=== PATIENT | male | born 1930 | race Caucasian/White ===

== ENCOUNTER 2016-11-07 10:49 | Emergency (ER) | payer MEDICARE, BC ==
[~2016-11-07] VITALS: Ht 177.8 cm; Wt 73.6 kg
[~2016-11-07 10:49] MED LIST: AMBIEN 10MG10 MG PO; ASPIRIN E.C. 8181 MG PO; ATIVAN 0.50.5 MG/TAB PO; AVAPRO TAB150 MG/TAB PO; B-12500 MCG PO; CRESTOR20 MG PO; LUTEIN20 MG PO; NAMENDA 10MG TA10 MG PO; NITRO-DUR0.4 MG/PAT TD; NITROQUICK0.4 MG SL; OMEGA-3 FISH1200 MG PO; PACERONE200 MG PO; PREDNISONE20 MG PO; ROXICODONE 55 MG/TAB PO; TEGRETOL100 MG PO; THEO-24100 MG PO; TIROSINT50 MCG PO; TOPROL XL 25MG25 MG PO; TYLENOL 325MG325 MG PO
[2016-11-07 10:51] VITALS: TEMP 97.7
[2016-11-07] MEDS ORDERED: LASIX 40MG TABL40 MG PO (11:12)
[2016-11-07] MEDS ORDERED: ANORO IH (11:12)
[2016-11-07] MEDS ORDERED: THEO-DUR 1100 MG/TAB PO (11:13)
[2016-11-07] MEDS ORDERED: MONTELUKAST TAB 10M (11:13)
[2016-11-07] MEDS ORDERED: ARICEPT10 MG PO (11:14)
[2016-11-07] MEDS ORDERED: TOPROL XL 25MG25 MG PO (11:14)
[2016-11-07] MEDS ORDERED: CRESTOR 10MG10 MG PO (11:15)
[2016-11-07] MEDS ORDERED: TEGRETOL 1100 MG/TAB PO (11:15)
[2016-11-07] MEDS ORDERED: LEVOXYL0.05 MG PO (11:15)
[2016-11-07] MEDS ORDERED: EDLUAR10 MG SL (11:15)
[2016-11-07] MEDS ORDERED: ASPIRIN E.C. 8181 MG PO (11:16)
[2016-11-07] MEDS ORDERED: LUTEIN20 M1 (11:16)
[2016-11-07] MEDS ORDERED: EPA FISH OIL1 SGL PO (11:16)
[2016-11-07] MEDS ORDERED: VITAMIN B-1000 MCG/T PO (11:17)
[2016-11-07] MEDS ORDERED: CALTRATE-600 W600 MG PO (11:17)
[2016-11-07] MEDS ORDERED: ZAROXOLYN 2.52.5 MG PO (11:17)
[2016-11-07] MEDS ORDERED: COMPLETE SENIOR1 TA1 PO (11:17)
[2016-11-07] MEDS ORDERED: DIGITEK0.125 MG PO (11:18)
[2016-11-07 12:20] LABS: BASO % 0.4 % (0.0-2.0); EOS # 0.3 (0.0-0.7); EOS % 4.2 % (0-4.0); GRAN % 63.5 % (42.2-75.2); LYMPH # 1.3 (1.2-3.4); LYMPH % 16.8 % (20.0-51.0); MEAN CELL VOLUME 97 fl (80.0-100.0); MEAN CORPUSCULAR HGB CONC 31 g/dl (33.0-37.0); MEAN PLATELET VOLUME 9.5 fl (7.4-10.4); MONO # 1.1 (0.1-0.6); MONO % 13.8 % (1.7-9.3); PLATELET COUNT 203 K/mm3 (130-400); RED BLOOD COUNT 3.78 M/mm3 (4.20-5.60); REDCELL DISTRIBUTION WIDTH-CV 14.6 % (11.5-14.5); WHITE BLOOD COUNT 7.8 K/mm3 (4.8-10.8)
[2016-11-07 12:21] LABS: HEMATOCRIT 36.8 % (42.0-52.0); HEMOGLOBIN 11.5 g/dl (13.5-18.0); MEAN CORPUSCULAR HEMOGLOBIN 30 pg (27.0-31.0)
[2016-11-07 12:32] LABS: ADJUSTED CALCIUM 9.4 mg/dL (8.4-10.2); ALBUMIN 3.5 gm/dL (3.5-5.0); BILIRUBIN,TOTAL 0.9 mg/dL (0.0-1.0); CREATININE, serum 1.03 mg/dL (0.66-1.25); POTASSIUM 3.8 mmol/L (3.4-5.0); TOTAL PROTEIN 6.4 gm/dL (6.4-8.2)
[2016-11-07 15:00] VITALS: BP 126/81; PULSE 63
== END 2016-11-07 15:01 | disposition home or self-care (01) ==
LOC: COL.ER 10:49
PROVIDERS: Physician Assistant Medical
DX: R63.4 Abnormal weight loss (principal); I25.10 Atherosclerotic heart disease of native coronary artery without angina pectoris; Z95.1 Presence of aortocoronary bypass graft; J44.9 Chronic obstructive pulmonary disease, unspecified; R60.0 Localized edema
CPT/HCPCS: J7030; Q9967

== ENCOUNTER 2017-12-28 07:41 | Emergency (ER) | payer MEDICARE, BC ==
[~2017-12-28] VITALS: Ht 175.3 cm; Wt 72.3 kg
[~2017-12-28 07:41] MED LIST changes: +ANORO IH; +ARICEPT10 MG PO; +CALTRATE-600 W600 MG PO; +COMPLETE SENIOR1 TA1 PO; +CRESTOR 10MG10 MG PO; +DIGITEK0.125 MG PO; +EDLUAR10 MG SL; +EPA FISH OIL1 SGL PO; +FLOMAX 0.40.4 MG/CAP PO; +LASIX 40MG TABL40 MG PO; +LEVOXYL0.05 MG PO; +LUTEIN20 M1; +MONTELUKAST TAB 10M; +PREDNISONE10 MG PO; +SINGULAIR 110 MG/TAB PO; +TEGRETOL 1100 MG/TAB PO; +THEO-DUR 1100 MG/TAB PO; +VITAMIN B-1000 MCG/T PO; +ZAROXOLYN 2.52.5 MG PO; +ZITHROMAX 250M250 MG PO
[2017-12-28] MEDS ORDERED: ADVIL200 MG PO (07:57)
[2017-12-28] MEDS ORDERED: ASPIRIN 81M81 MG/TA2 PO (08:05)
[2017-12-28] MEDS ORDERED: WALKER MC (08:50)
[2017-12-28] MEDS ORDERED: NORCO 325 MG-51 TAB PO (08:50)
[2017-12-28 09:12] VITALS: BP 98/57; PULSE 73
== END 2017-12-28 09:00 | disposition home or self-care (01) ==
LOC: COL.ER 07:41
DX: S82.62XA Displaced fracture of lateral malleolus of left fibula, initial encounter for closed fracture (principal); J44.9 Chronic obstructive pulmonary disease, unspecified; I10 Essential (primary) hypertension; E78.5 Hyperlipidemia, unspecified; F03.90 Unspecified dementia, unspecified severity, without behavioral disturbance, psychotic disturbance, mood disturbance, and anxiety; I48.91 Unspecified atrial fibrillation; Z86.718 Personal history of other venous thrombosis and embolism; Z86.711 Personal history of pulmonary embolism; Z79.82 Long term (current) use of aspirin; W19.XXXA Unspecified fall, initial encounter; X50.0XXA Overexertion from strenuous movement or load, initial encounter; Y92.009 Unspecified place in unspecified non-institutional (private) residence as the place of occurrence of the external cause
CPT/HCPCS: Q4045

== ENCOUNTER 2017-12-29 11:11 | Inpatient (IN) | payer MEDICARE, BC ==
[~2017-12-29] VITALS: Ht 175.3 cm; Wt 74.1 kg
[~2017-12-29 11:11] MED LIST changes: +ADVIL200 MG PO; +ASPIRIN 81M81 MG/TA2 PO; +NORCO 325 MG-51 TAB PO; +WALKER MC
[2017-12-29 15:55] VITALS: BP 110/54; PULSE 95; TEMP 97.8
[2017-12-30 06:00] VITALS: BP 100/57; PULSE 87; TEMP 98
[2017-12-30] MEDS ORDERED: LUTEIN20 M1 PO (09:41)
[2017-12-30] MEDS ORDERED: OMEGA-3 1000 MG1 CAP PO (09:44)
[2017-12-30 18:25] VITALS: BP 105/58; PULSE 102; TEMP 97.4
[2017-12-31 05:22] VITALS: BP 111/69; PULSE 102; TEMP 98.6
[2017-12-31 18:19] VITALS: BP 126/77; PULSE 106; TEMP 97.9
[2018-01-01 04:25] VITALS: BP 109/59; PULSE 67; TEMP 98.6
[2018-01-01 08:20] VITALS: BP 112/58
[2018-01-01 16:37] VITALS: BP 110/56; PULSE 64; TEMP 98.1
[2018-01-01 18:05] LABS: GRANULAR CAST >12 /lpf; MUCOUS Present /lpf; PH 5 (5-8); URINE APPEARANCE Cloudy; URINE BACTERIA None Seen /hpf; URINE BILIRUBIN Negative (NEGATIVE); URINE BLOOD 3+ (NEGATIVE); URINE COLOR Yellow; URINE GLUCOSE Negative (NEGATIVE); URINE KETONE Negative (NEGATIVE); URINE LEUKOCYTE ESTERASE 2+ (NEGATIVE); URINE NITRATE Negative (NEGATIVE); URINE PROTEIN(semi-quant) 1+ (NEGATIVE); URINE RBC >50 /hpf; URINE UROBILINOGEN Negative (NEGATIVE)
[2018-01-01 18:33] LABS: COLLECTION METHOD CLEAN CATCH
[2018-01-02 05:29] VITALS: BP 105/58; PULSE 57; TEMP 98.6
[2018-01-02 15:35] VITALS: BP 102/60; PULSE 98; TEMP 98.4
[2018-01-03 04:57] VITALS: BP 105/58; PULSE 95; TEMP 99.4
[2018-01-03 16:22] VITALS: BP 116/67; PULSE 108; TEMP 99
[2018-01-04 04:19] VITALS: BP 111/71; PULSE 91; TEMP 98.3
[2018-01-04 16:51] VITALS: BP 110/68; PULSE 93; TEMP 99
[2018-01-05 05:41] VITALS: BP 104/63; PULSE 95; TEMP 97.7
[2018-01-05 09:42] LABS: MUCOUS Present /lpf; PH 6 (5-8); SQUAMOUS EPITHELIAL 0-2 /hpf; URINE APPEARANCE Hazy; URINE BACTERIA None Seen /hpf; URINE BILIRUBIN Negative (NEGATIVE); URINE BLOOD 3+ (NEGATIVE); URINE COLOR Yellow; URINE GLUCOSE Negative (NEGATIVE); URINE KETONE Negative (NEGATIVE); URINE LEUKOCYTE ESTERASE 1+ (NEGATIVE); URINE NITRATE Negative (NEGATIVE); URINE PROTEIN(semi-quant) 2+ (NEGATIVE); URINE RBC 20-50 /hpf; URINE UROBILINOGEN >=4.0 mg/dL (NEGATIVE)
[2018-01-05 09:52] LABS: COLLECTION METHOD CATHETER
[2018-01-05 15:28] VITALS: BP 114/61; PULSE 96; TEMP 97.9
[2018-01-06 06:23] VITALS: BP 105/69; PULSE 93; TEMP 98.5
[2018-01-06 12:56] LABS: BASO % 0.2 % (0.0-2.0); EOS # 0.1 (0.0-0.7); EOS % 1.5 % (0-4.0); GRAN # 6.6 (1.4-6.5); LYMPH % 10.9 % (20.0-51.0); MEAN CELL VOLUME 101 fl (80.0-100.0); MEAN CORPUSCULAR HGB CONC 34 g/dl (33.0-37.0); MEAN PLATELET VOLUME 9.3 fl (7.4-10.4); MONO # 1.1 (0.1-0.6); MONO % 12.1 % (1.7-9.3); PLATELET COUNT 217 K/mm3 (130-400); RED BLOOD COUNT 2.87 M/mm3 (4.20-5.60); REDCELL DISTRIBUTION WIDTH-CV 12.1 % (11.5-14.5)
[2018-01-06 12:57] LABS: HEMATOCRIT 29.1 % (42.0-52.0); HEMOGLOBIN 9.8 g/dl (13.5-18.0); MEAN CORPUSCULAR HEMOGLOBIN 34 pg (27.0-31.0)
[2018-01-06 15:48] VITALS: BP 110/66; PULSE 93; TEMP 98.5
[2018-01-06] MEDS ORDERED: OMNICEF 300MG300 MG PO (20:08)
[2018-01-06] MEDS ORDERED: LASIX 20MG TABL20 MG PO (20:09)
[2018-01-06] MEDS ORDERED: DESENEX TP (20:10)
[2018-01-06] MEDS ORDERED: ULTRAM 50MG TAB50 MG PO (20:11)
[2018-01-06 23:14] VITALS: BP 110/67; PULSE 90; TEMP 97.5
[2018-01-07 05:17] VITALS: BP 110/67; PULSE 90; TEMP 97.5
[2018-01-07] MEDS ORDERED: NORCO 325 MG-7.1 TAB PO (11:34)
== END 2018-01-07 08:00 | DRG 560 ==
LOC: COL.ER 11:11
PROVIDERS: Internal Medicine; Nurse Anesthetist, Certified Registered; Physician Assistant
DX: S82.842D Displaced bimalleolar fracture of left lower leg, subsequent encounter for closed fracture with routine healing (principal); I50.22 Chronic systolic (congestive) heart failure; Z66 Do not resuscitate; W18.30XD Fall on same level, unspecified, subsequent encounter; I48.91 Unspecified atrial fibrillation; J44.9 Chronic obstructive pulmonary disease, unspecified; I11.0 Hypertensive heart disease with heart failure; I25.10 Atherosclerotic heart disease of native coronary artery without angina pectoris; F03.90 Unspecified dementia, unspecified severity, without behavioral disturbance, psychotic disturbance, mood disturbance, and anxiety; Z95.1 Presence of aortocoronary bypass graft; E78.5 Hyperlipidemia, unspecified; N40.1 Benign prostatic hyperplasia with lower urinary tract symptoms; R33.8 Other retention of urine
CPT/HCPCS: 99221; 99222-AI; 99232-AI; 99233-AI; 99239; A4315; G8978-GP; G8979-GP; J0690; J1650; J2250; J2704; J3010; J7120

== ENCOUNTER 2018-03-07 10:36 | Inpatient (IN) | payer MEDICARE, BC ==
[~2018-03-07] VITALS: Ht 175.3 cm; Wt 76.8 kg
[~2018-03-07 10:36] MED LIST changes: +DESENEX TP; +LASIX 20MG TABL20 MG PO; +LUTEIN20 M1 PO; +NORCO 325 MG-7.1 TAB PO; +OMEGA-3 1000 MG1 CAP PO; +OMNICEF 300MG300 MG PO; +ULTRAM 50MG TAB50 MG PO
[2018-03-07 11:35] LABS: BASO % 0.2 % (0.0-2.0); GRAN # 10.6 (1.4-6.5); GRAN % 87.4 % (42.2-75.2); HEMOGLOBIN 11.1 g/dl (13.5-18.0); LYMPH # 0.4 (1.2-3.4); LYMPH % 2.9 % (20.0-51.0); MEAN CELL VOLUME 98 fl (80.0-100.0); MEAN CORPUSCULAR HEMOGLOBIN 33 pg (27.0-31.0); MEAN CORPUSCULAR HGB CONC 34 g/dl (33.0-37.0); MEAN PLATELET VOLUME 10.5 fl (7.4-10.4); MONO # 1.1 (0.1-0.6); MONO % 8.9 % (1.7-9.3); PLATELET COUNT 145 K/mm3 (130-400); RED BLOOD COUNT 3.38 M/mm3 (4.20-5.60); REDCELL DISTRIBUTION WIDTH-CV 12.5 % (11.5-14.5)
[2018-03-07 11:46] LABS: ALBUMIN 3.7 gm/dL (3.5-5.0); BILIRUBIN,TOTAL 0.5 mg/dL (0.0-1.0); CALCIUM 9.2 mg/dL (8.4-10.2); CREATININE, serum 1.41 mg/dL (0.66-1.25); TOTAL PROTEIN 6.9 gm/dL (6.4-8.2)
[2018-03-07 11:56] LABS: COLLECTION METHOD CLEAN CATCH
[2018-03-07 12:04] LABS: MUCOUS Present /lpf; PH 5 (5-8); SQUAMOUS EPITHELIAL 0-2 /hpf; URINE APPEARANCE Cloudy; URINE BACTERIA Moderate /hpf; URINE BILIRUBIN Negative (NEGATIVE); URINE BLOOD 1+ (NEGATIVE); URINE COLOR Yellow; URINE GLUCOSE Negative (NEGATIVE); URINE KETONE Negative (NEGATIVE); URINE LEUKOCYTE ESTERASE 3+ (NEGATIVE); URINE NITRATE Positive (NEGATIVE); URINE PROTEIN(semi-quant) 1+ (NEGATIVE); URINE UROBILINOGEN Negative (NEGATIVE)
[2018-03-07] MEDS ORDERED: LASIX 20MG TABL20 MG PO (14:06)
[2018-03-07 15:50] VITALS: PULSE 77; TEMP 98.1
[2018-03-07 17:36] VITALS: BP 110/61; PULSE 80; TEMP 99.1
[2018-03-07 17:37] VITALS: BP 106/54; BP 110/58; PULSE 75; PULSE 84; TEMP 99.1
[2018-03-07 20:26] VITALS: BP 117/58; PULSE 96; TEMP 98.2
[2018-03-07 23:31] VITALS: BP 126/61; PULSE 90; TEMP 98.2
[2018-03-08 03:47] VITALS: BP 94/62; PULSE 78; TEMP 98.6
[2018-03-08 07:48] VITALS: BP 108/65; PULSE 77; TEMP 98.7
[2018-03-08 09:31] LABS: HEMOGLOBIN 11.1 g/dl (13.5-18.0); MEAN CELL VOLUME 100 fl (80.0-100.0); MEAN CORPUSCULAR HEMOGLOBIN 33 pg (27.0-31.0); MEAN CORPUSCULAR HGB CONC 33 g/dl (33.0-37.0); PLATELET COUNT 138 K/mm3 (130-400); RED BLOOD COUNT 3.39 M/mm3 (4.20-5.60); REDCELL DISTRIBUTION WIDTH-CV 12.8 % (11.5-14.5)
[2018-03-08 09:32] LABS: HEMATOCRIT 33.9 % (42.0-52.0)
[2018-03-08 09:35] LABS: ALBUMIN 3.4 gm/dL (3.5-5.0); BILIRUBIN,TOTAL 0.4 mg/dL (0.0-1.0); CALCIUM 8.7 mg/dL (8.4-10.2); CREATININE, serum 1.31 mg/dL (0.66-1.25); POTASSIUM 3.9 mmol/L (3.4-5.0); TOTAL PROTEIN 6.4 gm/dL (6.4-8.2)
[2018-03-08 09:41] LABS: BAND 25 % (0-10); LYMPHOCYTE 10 % (20.0-51.0); NEUTROPHILS 62 % (42.0-75.2); PLATELET ESTIMATE NORMAL (NORMAL)
[2018-03-08 11:57] VITALS: BP 100/56; PULSE 78; TEMP 98.6
[2018-03-08 16:17] VITALS: BP 111/65; PULSE 77
[2018-03-08 18:21] LABS: COLLECTION METHOD CLEAN CATCH
[2018-03-08 18:36] LABS: MUCOUS Present /lpf; PH 5 (5-8); SQUAMOUS EPITHELIAL 0-2 /hpf; URINE APPEARANCE Cloudy; URINE BACTERIA Many /hpf; URINE BILIRUBIN Negative (NEGATIVE); URINE BLOOD 1+ (NEGATIVE); URINE COLOR Yellow; URINE GLUCOSE Negative (NEGATIVE); URINE KETONE Negative (NEGATIVE); URINE LEUKOCYTE ESTERASE 3+ (NEGATIVE); URINE NITRATE Positive (NEGATIVE); URINE PROTEIN(semi-quant) 1+ (NEGATIVE); URINE UROBILINOGEN Negative (NEGATIVE); URINE WBC >50 /hpf
[2018-03-08 18:53] VITALS: BP 118/64; PULSE 81; TEMP 100
[2018-03-09 00:07] VITALS: BP 106/52; PULSE 78; TEMP 99.1
[2018-03-09 03:16] VITALS: PULSE 74
[2018-03-09 07:24] VITALS: BP 106/60; PULSE 72; TEMP 99.1
[2018-03-09 09:10] LABS: BASO % 0.1 % (0.0-2.0); EOS % 0.3 % (0-4.0); GRAN # 5.9 (1.4-6.5); GRAN % 75.3 % (42.2-75.2); HEMOGLOBIN 10.8 g/dl (13.5-18.0); MEAN CELL VOLUME 99 fl (80.0-100.0); MEAN CORPUSCULAR HEMOGLOBIN 32 pg (27.0-31.0); MEAN CORPUSCULAR HGB CONC 33 g/dl (33.0-37.0); MEAN PLATELET VOLUME 10.4 fl (7.4-10.4); MONO # 0.9 (0.1-0.6); MONO % 10.9 % (1.7-9.3); PLATELET COUNT 138 K/mm3 (130-400); RED BLOOD COUNT 3.35 M/mm3 (4.20-5.60); REDCELL DISTRIBUTION WIDTH-CV 12.9 % (11.5-14.5)
[2018-03-09 09:13] LABS: HEMATOCRIT 33.2 % (42.0-52.0)
[2018-03-09 09:23] LABS: ALBUMIN 3.4 gm/dL (3.5-5.0); BILIRUBIN,TOTAL 0.4 mg/dL (0.0-1.0); CALCIUM 8.8 mg/dL (8.4-10.2); CREATININE, serum 1.26 mg/dL (0.66-1.25); POTASSIUM 3.6 mmol/L (3.4-5.0); TOTAL PROTEIN 6.3 gm/dL (6.4-8.2)
[2018-03-09 11:37] VITALS: BP 114/66; PULSE 76; TEMP 98.1
[2018-03-09 16:05] VITALS: BP 108/69; PULSE 79; TEMP 98.4
[2018-03-09 20:00] VITALS: BP 119/70; PULSE 75; TEMP 98.9
[2018-03-10 02:00] VITALS: BP 102/62; PULSE 72; TEMP 98.1
[2018-03-10 07:13] LABS: BASO % 0.2 % (0.0-2.0); EOS # 0.1 (0.0-0.7); EOS % 1.1 % (0-4.0); GRAN # 4.9 (1.4-6.5); HEMOGLOBIN 10.6 g/dl (13.5-18.0); LYMPH # 0.7 (1.2-3.4); LYMPH % 10.2 % (20.0-51.0); MEAN CELL VOLUME 99 fl (80.0-100.0); MEAN CORPUSCULAR HEMOGLOBIN 32 pg (27.0-31.0); MEAN CORPUSCULAR HGB CONC 33 g/dl (33.0-37.0); MEAN PLATELET VOLUME 10.5 fl (7.4-10.4); MONO # 0.7 (0.1-0.6); PLATELET COUNT 133 K/mm3 (130-400); RED BLOOD COUNT 3.29 M/mm3 (4.20-5.60); REDCELL DISTRIBUTION WIDTH-CV 12.9 % (11.5-14.5)
[2018-03-10 07:18] LABS: HEMATOCRIT 32.5 % (42.0-52.0)
[2018-03-10 07:34] LABS: CALCIUM 8.8 mg/dL (8.4-10.2); CREATININE, serum 1.14 mg/dL (0.66-1.25); POTASSIUM 3.7 mmol/L (3.4-5.0)
[2018-03-10 08:15] VITALS: BP 109/64; PULSE 81; TEMP 97.9
[2018-03-10 11:00] VITALS: BP 107/60; PULSE 77; TEMP 98.1
[2018-03-10 15:05] VITALS: BP 133/76; PULSE 87; TEMP 97.6
[2018-03-10 20:30] VITALS: BP 114/66; PULSE 82; TEMP 98.9
[2018-03-11 02:30] VITALS: BP 104/56; PULSE 72; TEMP 98.1
[2018-03-11 07:03] VITALS: BP 103/66; PULSE 73; TEMP 98.1
[2018-03-11 07:10] LABS: BASO % 0.3 % (0.0-2.0); EOS # 0.1 (0.0-0.7); EOS % 1.6 % (0-4.0); GRAN # 4.6 (1.4-6.5); GRAN % 71.5 % (42.2-75.2); HEMOGLOBIN 10.3 g/dl (13.5-18.0); LYMPH % 15.4 % (20.0-51.0); MEAN CELL VOLUME 100 fl (80.0-100.0); MEAN CORPUSCULAR HEMOGLOBIN 32 pg (27.0-31.0); MEAN CORPUSCULAR HGB CONC 32 g/dl (33.0-37.0); MEAN PLATELET VOLUME 10.4 fl (7.4-10.4); MONO # 0.7 (0.1-0.6); MONO % 10.9 % (1.7-9.3); PLATELET COUNT 157 K/mm3 (130-400); RED BLOOD COUNT 3.19 M/mm3 (4.20-5.60); REDCELL DISTRIBUTION WIDTH-CV 12.8 % (11.5-14.5)
[2018-03-11 07:14] LABS: HEMATOCRIT 31.8 % (42.0-52.0)
[2018-03-11 07:22] LABS: CREATININE, serum 1.1 mg/dL (0.66-1.25); POTASSIUM 4.3 mmol/L (3.4-5.0)
[2018-03-11 11:07] VITALS: BP 115/73; PULSE 80; TEMP 98.7
[2018-03-11] MEDS ORDERED: MERREM IV1 GM IV (12:04)
[2018-03-11] MEDS ORDERED: IPRATROPIUM BROM3 M1 IH (12:05)
[2018-03-11] MEDS ORDERED: NORCO 325 MG-7.1 TAB PO (12:06)
== END 2018-03-11 15:16 | DRG 872 ==
LOC: COL.ER 10:36 → MEDICAL 12:31
PROVIDERS: Family Medicine; Physician Assistant; Student in an Organized Health Care Education/Training Program
PROC: 02HV33Z Insertion of Infusion Device into Superior Vena Cava, Percutaneous Approach (ICD-10-PCS; principal; 2018-03-11)
DX: A41.89 Other specified sepsis (principal); N39.0 Urinary tract infection, site not specified; I13.0 Hypertensive heart and chronic kidney disease with heart failure and stage 1 through stage 4 chronic kidney disease, or unspecified chronic kidney disease; I50.32 Chronic diastolic (congestive) heart failure; N17.9 Acute kidney failure, unspecified; Z66 Do not resuscitate; F03.90 Unspecified dementia, unspecified severity, without behavioral disturbance, psychotic disturbance, mood disturbance, and anxiety; J44.9 Chronic obstructive pulmonary disease, unspecified; Z23 Encounter for immunization; N18.2 Chronic kidney disease, stage 2 (mild); I25.10 Atherosclerotic heart disease of native coronary artery without angina pectoris; Z95.1 Presence of aortocoronary bypass graft; E78.5 Hyperlipidemia, unspecified; Z86.711 Personal history of pulmonary embolism; W18.30XA Fall on same level, unspecified, initial encounter
CPT/HCPCS: 99223-AI; 99231-AI; 99232-AI; 99233-AI; 99239; A4216; C1751; J0696; J1644; J1940; J2185; J7030

== ENCOUNTER → 2018-05-06 | Outpatient (CLI) | payer MEDICARE, BC ==
[~2018-05-06] MED LIST changes: +IPRATROPIUM BROM3 M1 IH; +MERREM IV1 GM IV
== END ==
LOC: COL.RAD 09:55
DX: I71.4 Abdominal aortic aneurysm, without rupture (principal)

== ENCOUNTER 2018-05-13 11:45 | Outpatient (RCR) | payer MEDICARE, BC ==
[~2018-05-13 11:45] MED LIST changes: -THEO-DUR 1100 MG/TAB PO; +THEO-DUR 3300 MG/TAB PO
[2018-05-30] MEDS ORDERED: SYNTHROID0.05 MG/TA PO (14:37)
[2018-06-02] MEDS ORDERED: LASIX 20MG TABL20 MG PO (09:32)
== END 2018-07-09 17:27 | disposition home or self-care (01) ==
LOC: WSPT 11:45
DX: Z47.89 Encounter for other orthopedic aftercare (principal)
CPT/HCPCS: G8978-GP; G8979-GP

== ENCOUNTER → 2018-05-15 | Outpatient (CLI) | payer MEDICARE, BC ==
[~2018-05-15] MED LIST changes: +THEO-DUR 1100 MG/TAB PO; -THEO-DUR 3300 MG/TAB PO
== END ==
LOC: COL.RAD 10:57
DX: I71.4 Abdominal aortic aneurysm, without rupture (principal); I70.1 Atherosclerosis of renal artery; N40.0 Benign prostatic hyperplasia without lower urinary tract symptoms; N32.89 Other specified disorders of bladder; J98.4 Other disorders of lung
CPT/HCPCS: Q9967

== ENCOUNTER → 2018-06-23 | Outpatient (REF) ==
[~2018-06-23] MED LIST changes: +SYNTHROID0.05 MG/TA PO; -THEO-DUR 1100 MG/TAB PO; +THEO-DUR 3300 MG/TAB PO
[2018-06-23 13:19] LABS: COLLECTION METHOD CLEAN CATCH
[2018-06-23 13:37] LABS: PH 5 (5-8); SQUAMOUS EPITHELIAL 0-2 /hpf; URINE APPEARANCE Clear; URINE BACTERIA None Seen /hpf; URINE BILIRUBIN Negative (NEGATIVE); URINE BLOOD Negative (NEGATIVE); URINE COLOR Yellow; URINE GLUCOSE Negative (NEGATIVE); URINE KETONE Negative (NEGATIVE); URINE LEUKOCYTE ESTERASE Negative (NEGATIVE); URINE NITRATE Negative (NEGATIVE); URINE PROTEIN(semi-quant) Negative (NEGATIVE); URINE RBC None Seen /hpf; URINE UROBILINOGEN Negative (NEGATIVE); URINE WBC 0-2 /hpf
== END ==
LOC: ZCOL.LAB 13:17
PROVIDERS: Internal Medicine
DX: Z01.89 Encounter for other specified special examinations (principal)

== ENCOUNTER → 2018-06-26 | Outpatient (CLI) | payer MEDICARE, BC ==
[2018-06-26 11:26] LABS: CALCIUM 9.3 mg/dL (8.4-10.2); CREATININE, serum 1.16 mg/dL (0.66-1.25); POTASSIUM 3.7 mmol/L (3.4-5.0)
== END ==
LOC: ZCOL.LAB 10:19
PROVIDERS: Internal Medicine
DX: N17.9 Acute kidney failure, unspecified (principal)

== ENCOUNTER 2019-02-03 13:17 | Emergency (ER) | payer MEDICARE, BC ==
[2019-02-03 13:34] VITALS: TEMP 98.8
[2019-02-03 14:10] LABS: BASO % 0.5 % (0.0-2.0); EOS # 0.1 (0.0-0.7); EOS % 0.9 % (0-4.0); GRAN # 3.9 (1.4-6.5); GRAN % 69.4 % (42.2-75.2); LYMPH # 0.9 (1.2-3.4); LYMPH % 15.3 % (20.0-51.0); MEAN CELL VOLUME 101 fl (80.0-100.0); MEAN CORPUSCULAR HGB CONC 30 g/dl (33.0-37.0); MEAN PLATELET VOLUME 9.6 fl (7.4-10.4); MONO # 0.8 (0.1-0.6); MONO % 13.7 % (1.7-9.3); PLATELET COUNT 169 K/mm3 (130-400); RED BLOOD COUNT 2.93 M/mm3 (4.20-5.60); REDCELL DISTRIBUTION WIDTH-CV 15.4 % (11.5-14.5)
[2019-02-03 14:15] LABS: HEMATOCRIT 29.5 % (42.0-52.0); HEMOGLOBIN 8.9 g/dl (13.5-18.0); MEAN CORPUSCULAR HEMOGLOBIN 30 pg (27.0-31.0)
[2019-02-03 14:16] LABS: COLLECTION METHOD CLEAN CATCH
[2019-02-03 14:18] LABS: ALBUMIN 3.8 gm/dL (3.5-5.0); BILIRUBIN,TOTAL 0.6 mg/dL (0.0-1.0); CALCIUM 9.4 mg/dL (8.4-10.2); CREATININE, serum 1.69 (0.66-1.25); INR 1.6 (0.8-3.0); MAGNESIUM 2.2 mg/dL (1.6-2.3); POTASSIUM 4.1 mmol/L (3.4-5.0); PROTHROMBIN TIME 18.8 SECONDS (9.7-12.8); TOTAL PROTEIN 6.7 gm/dL (6.4-8.2)
[2019-02-03 14:21] LABS: DIGOXIN 0.9 ng/mL (0.8-2.0); PARTIAL THROMBOPLASTIN TIME 29.5 SECONDS (26.0-37.0)
[2019-02-03 14:37] LABS: HYALINE CAST >12 /lpf; MUCOUS Present /lpf; PH 5 (5-8); SQUAMOUS EPITHELIAL 0-2 /hpf; URINE APPEARANCE Hazy; URINE BACTERIA Occasional /hpf; URINE BILIRUBIN Negative (NEGATIVE); URINE BLOOD Negative (NEGATIVE); URINE COLOR Yellow; URINE GLUCOSE Negative (NEGATIVE); URINE KETONE Negative (NEGATIVE); URINE LEUKOCYTE ESTERASE 3+ (NEGATIVE); URINE NITRATE Negative (NEGATIVE); URINE PROTEIN(semi-quant) 1+ (NEGATIVE); URINE UROBILINOGEN Negative (NEGATIVE)
[2019-02-03 14:47] LABS: THEOPHYLLINE 9.4 ug/mL (10.0-20.0)
[2019-02-03 17:17] VITALS: BP 111/72; PULSE 71
== END 2019-02-03 17:17 | disposition short-term general hospital (02) ==
LOC: COL.ER 13:17
PROVIDERS: Emergency Medicine
DX: I50.9 Heart failure, unspecified (principal); I25.10 Atherosclerotic heart disease of native coronary artery without angina pectoris; I48.91 Unspecified atrial fibrillation; Z86.711 Personal history of pulmonary embolism; Z86.718 Personal history of other venous thrombosis and embolism; Z95.1 Presence of aortocoronary bypass graft; Z79.82 Long term (current) use of aspirin
CPT/HCPCS: J1956

== ENCOUNTER 2019-02-16 16:09 | Emergency (ER) | payer MEDICARE, BC ==
[~2019-02-16] VITALS: Ht 175.3 cm; Wt 68.6 kg
[2019-02-16 16:20] VITALS: TEMP 98.1
[2019-02-16 19:26] LABS: ALBUMIN 4.3 gm/dL (3.5-5.0); BILIRUBIN,TOTAL 0.6 mg/dL (0.0-1.0); CREATININE, serum 1.8 (0.66-1.25); POTASSIUM 4.6 mmol/L (3.4-5.0); TOTAL PROTEIN 7.7 gm/dL (6.4-8.2)
[2019-02-16 19:27] LABS: BASO % 0.4 % (0.0-2.0); EOS # 0.1 (0.0-0.7); EOS % 0.9 % (0-4.0); GRAN # 5.6 (1.4-6.5); GRAN % 71.7 % (42.2-75.2); LYMPH # 1.2 (1.2-3.4); LYMPH % 15.3 % (20.0-51.0); MEAN CELL VOLUME 102 fl (80.0-100.0); MEAN CORPUSCULAR HGB CONC 30 g/dl (33.0-37.0); MEAN PLATELET VOLUME 9.4 fl (7.4-10.4); MONO # 0.9 (0.1-0.6); MONO % 11.1 % (1.7-9.3); PLATELET COUNT 261 K/mm3 (130-400); RED BLOOD COUNT 3.15 M/mm3 (4.20-5.60); REDCELL DISTRIBUTION WIDTH-CV 15.1 % (11.5-14.5)
[2019-02-16 19:30] LABS: HEMATOCRIT 32.1 % (42.0-52.0); HEMOGLOBIN 9.7 g/dl (13.5-18.0); MEAN CORPUSCULAR HEMOGLOBIN 31 pg (27.0-31.0)
[2019-02-16 20:18] LABS: COLLECTION METHOD IN
[2019-02-16 20:27] LABS: BUDDING YEAST Present /hpf; PH 7 (5-8); SQUAMOUS EPITHELIAL None Seen /hpf; URINE APPEARANCE Cloudy; URINE BACTERIA Rare /hpf; URINE BILIRUBIN Negative (NEGATIVE); URINE BLOOD 1+ (NEGATIVE); URINE COLOR Yellow; URINE GLUCOSE Negative (NEGATIVE); URINE KETONE Negative (NEGATIVE); URINE LEUKOCYTE ESTERASE 3+ (NEGATIVE); URINE NITRATE Positive (NEGATIVE); URINE PROTEIN(semi-quant) Negative (NEGATIVE); URINE UROBILINOGEN Negative (NEGATIVE)
[2019-02-16] MEDS ORDERED: CEFTIN500 MG PO (20:41)
[2019-02-16 21:10] VITALS: BP 119/80; PULSE 84
== END 2019-02-16 21:15 | disposition home or self-care (01) ==
LOC: COL.ER 16:09
PROVIDERS: Emergency Medicine
DX: S51.012A Laceration without foreign body of left elbow, initial encounter (principal); S00.83XA Contusion of other part of head, initial encounter; N39.0 Urinary tract infection, site not specified; R33.9 Retention of urine, unspecified; I50.9 Heart failure, unspecified; Z23 Encounter for immunization; W01.0XXA Fall on same level from slipping, tripping and stumbling without subsequent striking against object, initial encounter; Y92.009 Unspecified place in unspecified non-institutional (private) residence as the place of occurrence of the external cause

== ENCOUNTER 2019-05-02 06:56 | Emergency (ER) | payer MEDICARE, BC ==
[~2019-05-02] VITALS: Ht 175.3 cm; Wt 56.8 kg
[~2019-05-02 06:56] MED LIST changes: +CEFTIN500 MG PO
[2019-05-02 06:57] VITALS: TEMP 97.3
[2019-05-02] MEDS ORDERED: LASIX 40MG TABL40 MG PO (07:23)
[2019-05-02 08:21] LABS: BASO % 0.5 % (0.0-2.0); EOS # 0.1 (0.0-0.7); EOS % 1.8 % (0-4.0); GRAN # 4.4 (1.4-6.5); GRAN % 72.7 % (42.2-75.2); HEMATOCRIT 27.3 % (42.0-52.0); HEMOGLOBIN 8.2 g/dl (13.5-18.0); LYMPH # 0.6 (1.2-3.4); LYMPH % 9.9 % (20.0-51.0); MEAN CELL VOLUME 95 fl (80.0-100.0); MEAN CORPUSCULAR HEMOGLOBIN 28 pg (27.0-31.0); MEAN CORPUSCULAR HGB CONC 30 g/dl (33.0-37.0); MEAN PLATELET VOLUME 9.3 fl (7.4-10.4); MONO # 0.9 (0.1-0.6); MONO % 14.6 % (1.7-9.3); PLATELET COUNT 180 K/mm3 (130-400); RED BLOOD COUNT 2.88 M/mm3 (4.20-5.60); REDCELL DISTRIBUTION WIDTH-CV 15.2 % (11.5-14.5)
[2019-05-02 08:32] LABS: ALBUMIN 3.9 gm/dL (3.5-5.0); BILIRUBIN,TOTAL 0.9 mg/dL (0.0-1.0); CALCIUM 9.4 mg/dL (8.4-10.2); CREATININE, serum 2.52 (0.66-1.25); POTASSIUM 3.3 mmol/L (3.4-5.0); TOTAL PROTEIN 7.1 gm/dL (6.4-8.2)
[2019-05-02 09:17] VITALS: BP 101/64; PULSE 72
--- NOTE | 2019-05-04 14:51 | NUR ---
pier worker was notified by EMS that they had been called to patient's house 5 times in the last 36 hours for falls. Worker confirmed that patient is on the medicare hospice benefit and utilizes [facility]. Worker contacted Prabha and advised of the above information and the concern noted that is extremely fatigued from caregiving and patient is requiring a safe plan. Prabha was able to get patient [facility] to [facility] this date for a brief respite stay. Worker contacted Cristal Odom LMSW with Dr Garcia and advised of the concerns with the above information and concern that patient and spouse can no longer manage care in the home. Cristal will collaborate with Dr Garcia and speak with spouse.
== END 2019-05-02 09:35 | disposition home or self-care (01) ==
LOC: COL.ER 06:56
PROVIDERS: Family Medicine
DX: S06.0X9A Concussion with loss of consciousness of unspecified duration, initial encounter (principal); I12.0 Hypertensive chronic kidney disease with stage 5 chronic kidney disease or end stage renal disease; N18.6 End stage renal disease; D64.9 Anemia, unspecified; R40.2410 Glasgow coma scale score 13-15, unspecified time; Z79.84 Long term (current) use of oral hypoglycemic drugs; Z79.82 Long term (current) use of aspirin; W18.30XA Fall on same level, unspecified, initial encounter; Y92.129 Unspecified place in nursing home as the place of occurrence of the external cause